=== PATIENT | male | born 1990 | race Caucasian/White ===

== ENCOUNTER 2017-12-19 19:25 | Emergency (ER) | payer SELFPAY ==
[~2017-12-19] VITALS: Ht 180.3 cm; Wt 63.5 kg
[~2017-12-19 19:25] MED LIST: AMOXICILLIN500 MG PO; BACTRIM DS TAB1 EACH PO; CEPHALEXIN500 MG PO; CIPRO500 MG PO; NORCO 5-325 TA1 EACH PO; PEPTO-BISM262 MG/15 PO; PRILOSEC20 MG PO; ULTRAM50 MG PO; ZOFRAN ODT4 MG SL
== END 2017-12-19 20:30 | disposition left against medical advice (07) ==
LOC: ED 19:25
DX: Z53.21 Procedure and treatment not carried out due to patient leaving prior to being seen by health care provider (principal)

== ENCOUNTER 2025-04-29 01:42 | Emergency (ER) | payer OTHER ==
[~2025-04-29] VITALS: Ht 170.2 cm; Wt 72.0 kg
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
[2025-04-29] MEDS ORDERED: IBUPROFEN 600 MG TAB PO ONE (02:15)
[2025-04-29] MEDS ORDERED: CYCLOBENZAPRINE HCL 10 MG HOME.PACK PO ONE (02:15)
[2025-04-29] MEDS ORDERED: CYCLOBENZAPRINE10 MG PO (02:32)
[2025-04-29 02:54] VITALS: BP 115/85
== END 2025-04-29 02:58 | disposition home or self-care (01) ==
LOC: ED 01:42
DX: S83.92XA Sprain of unspecified site of left knee, initial encounter (principal); W20.8XXA Other cause of strike by thrown, projected or falling object, initial encounter
CPT/HCPCS: 73560; 99283; A9270